=== PATIENT | female | born 1935 | race Caucasian/White ===

== ENCOUNTER 2021-10-24 22:38 | Inpatient (IN) | payer MEDICARE, OTHER ==
[~2021-10-24] VITALS: Ht 165.1 cm; Wt 61.7 kg
--- NOTE | 2021-10-24 22:49 | NUR ---
Dr Smith at bedside, MSE in progress.
[2021-10-24] MEDS ORDERED: ATEN25TA PO (22:53)
[2021-10-24] MEDS ORDERED: METF-494 PO (22:53)
[2021-10-24] MEDS ORDERED: ESCI5TAB PO (22:53)
[2021-10-24] MEDS ORDERED: ONDANSETRON 4 MG/2 ML VIAL ONE (22:55)
[2021-10-24] MEDS ORDERED: ONDANSETRON 4 MG/2 ML VIAL IV ONE (23:00)
[2021-10-24] MEDS ORDERED: FENTANYL CITRATE 100 MCG/2 ML AMPUL IV ONE (23:00)
[2021-10-24] MEDS ORDERED: FENTANYL CITRATE 100 MCG/2 ML AMPUL ONE (23:13)
[2021-10-24 23:25] LABS: MEAN CORPUSCULAR HEMOGLOBIN 30.8 uug (24.7-32.8); MEAN CORPUSCULAR VOLUME 87.6 fL (75.5-95.3); PLATELET COUNT (AUTO) 173 K/uL (179-408)
[2021-10-24 23:27] LABS: CARBON DIOXIDE 28 mmol/L (21-32); CHLORIDE 100 mmol/L (98-107); CREATININE 0.7 mg/dL (0.6-1.3); GLUCOSE 196 mg/dL (74-106); POTASSIUM 3.8 mmol/L (3.5-5.1); UREA NITROGEN, BLOOD 11 mg/dL (7-18)
[2021-10-24 23:43] LABS: ALANINE AMINOTRANSFERASE 24 U/L (14-59); ALKALINE PHOSPHATASE 59 U/L (50-136); ASPARTATE AMINOTRANSFERASE 15 U/L (15-37); BILIRUBIN,DIRECT 0.1 mg/dL (0.0-0.2); BILIRUBIN,TOTAL 0.2 mg/dL (0.2-1.0); LIPASE 121 U/L (73-393); TOTAL PROTEIN, SERUM 7.1 g/dL (6.4-8.2)
[2021-10-25] MEDS ORDERED: LOSA50TA39 PO (00:24)
[2021-10-25] MEDS ORDERED: ROSU40TA PO (00:24)
[2021-10-25] MEDS ORDERED: CITA10TA9 PO (00:24)
[2021-10-25] MEDS ORDERED: CLON1TAB12 PO (00:24)
[2021-10-25] MEDS ORDERED: LEVO50TA8 PO (00:24)
[2021-10-25] MEDS ORDERED: DONE10TA44 PO (00:24)
[2021-10-25] MEDS ORDERED: METF-440 PO (00:24)
[2021-10-25] MEDS ORDERED: CYCL30DR OP (00:24)
[2021-10-25] MEDS ORDERED: METO25TA3 PO (00:24)
[2021-10-25] MEDS ORDERED: PREG75CA PO (00:24)
[2021-10-25] MEDS ORDERED: MEMA10TA PO (00:24)
--- NOTE | 2021-10-25 03:12 | NUR ---
Called [facility] for panel call.
[2021-10-25] MEDS ORDERED: CLONAZEPAM 1 MG TABLET PO PRN (03:30)
[2021-10-25] MEDS ORDERED: FENTANYL CITRATE 100 MCG/2 ML AMPUL IV ONE (05:15)
[2021-10-25] MEDS ORDERED: FENTANYL CITRATE 100 MCG/2 ML AMPUL ONE (05:18)
[2021-10-25 05:44] LABS: *BILIRUBIN,URIN NEGATIVE (NEGATIVE); *BLOOD, URINE NEGATIVE (NEGATIVE); *COLOR,URINE YELLOW (YELLOW); *KETONES,URINE NEGATIVE (NEGATIVE); *UROBILINOGEN,URINE 0.2 E.U./dl (NORMAL); LEUKOCYTE ESTERASE ,URINE 2+ (NEGATIVE); NITRITE, URINE NEGATIVE (NEGATIVE); UGLUCOSE NEGATIVE (NEGATIVE)
[2021-10-25 05:47] LABS: *CLARITY,URINE HAZY (CLEAR)
[2021-10-25] MEDS ORDERED: BLOOD SUGAR DIAGNOSTIC 1 EACH STRIP VI SCH (06:00)
[2021-10-25] MEDS ORDERED: ONDANSETRON 4 MG/2 ML VIAL ONE (06:11)
[2021-10-25] MEDS ORDERED: ONDANSETRON 4 MG/2 ML VIAL IV ONE (06:15)
[2021-10-25 06:16] LABS: BACTERIA,URINE FEW /HPF (NONE SEEN); RBC,URINE 0-3 /HPF (0-3); SQUAMOUS EPITHELIAL CELL,UR FEW /HPF (NONE SEEN)
--- NOTE | 2021-10-25 07:15 | NUR ---
Received pt awake in bed, alert and orientedx2. Patient not in any form of distress. No complaints of pain/discomfort at this time.
[2021-10-25] MEDS: LEVOTHYROXINE SODIUM 50 MCG TABLET PO SCH (07:30)
[2021-10-25] MEDS ORDERED: hydrALAZINE HCL 20 MG/1 ML VIAL IV PRN (07:45)
[2021-10-25] MEDS ORDERED: DEXTROSE 50% 50 ML DISP.SYRIN IV PRN (07:45)
[2021-10-25] MEDS: BLOOD SUGAR DIAGNOSTIC 1 EACH STRIP VI SCH ×4 (08:26→20:25)
[2021-10-25] MEDS ORDERED: LEVOTHYROXINE SODIUM 100 MCG TABLET ONE (08:34)
[2021-10-25] MEDS ORDERED: Medication Not On Formulary EA (Pregabalin (Lyrica) 75 MG) PO SCH (09:00)
[2021-10-25] MEDS ORDERED: MEMANTINE HCL 10 MG TABLET PO SCH (09:00)
[2021-10-25] MEDS ORDERED: Medication Not On Formulary EA (Rosuvastatin Calcium (Crestor) 40 MG) PO SCH (09:00)
[2021-10-25] MEDS: INSULIN REGULAR, HUMAN 300 UNIT/3 ML VIAL SQ PRN ×4 (09:02→20:26)
--- NOTE | 2021-10-25 09:17 | NUR ---
Report given to Nurse homer. Patient will be in room 309 telemetry.
--- NOTE | 2021-10-25 09:30 | NUR ---
Patient alert and orientedx2, not in distress. Patient transferred to telemetry room 309 accompanied by RN. Vitals as follows; BP-130/70 MT-60 RR-18 T-97 [id number]%RA
[2021-10-25 09:52] VITALS: BP 129/75
[2021-10-25] MEDS: MEMANTINE HCL 10 MG TABLET PO SCH ×2 (10:07→20:10)
[2021-10-25] MEDS: ASPIRIN EC 81 MG TABLET.DR PO SCH (10:07)
[2021-10-25] MEDS: CITALOPRAM 10 MG TABLET PO SCH (10:07)
[2021-10-25] MEDS: NITROFURANTOIN/NITROFURAN MAC 100 MG CAPSULE PO SCH ×2 (10:07→20:10)
[2021-10-25] MEDS: PREGABALIN 25 MG CAPSULE PO SCH (10:07)
[2021-10-25] MEDS: LOSARTAN POTASSIUM 50 MG TABLET PO SCH (10:08)
[2021-10-25] MEDS: METOPROLOL SUCCINATE XL 25 MG TAB.SR.24H PO SCH (10:08)
[2021-10-25] MEDS: POLYVINYL ALCOHOL OPHT DROPS 15 ML BOTTLE EACHEYE SCH ×2 (10:09→17:06)
[2021-10-25 10:30] VITALS: BP 129/75
[2021-10-25] MEDS ORDERED: IOHEXOL 350 100 ML INFUS..BTL ONE (10:49)
[2021-10-25] MEDS ORDERED: IV NORMAL SALINE 250 ML IV ONE (10:49)
[2021-10-25] MEDS ORDERED: SWABABLE VALVE TRANSFER SET EA MC ONE (10:49)
--- NOTE | 2021-10-25 13:00 | NUR ---
Pt alert and oriented x 4 Pt denies any c/o pain. used pbx installer phone [phone] for admission and consents for cta brain and carotid and mri checklist. Noted redness striations on right foot. Pt states that she has had that since and its normal for her. Skin intact otherwise. IV patent on left f/a #20 gauge flushing well without any resistance . Pt evaluated by Physical therapy min A. Pt c/o shaking on her right lower leg with the juvenile detention officer but denies pain. Pt SNR on tele with pac's and pvcs. Bed alarm on. Pt swallowing without difficulty and no coughing noted. No drift noted no weakness on UE's and LE's no facial droop noted. Call light is within reach.
[2021-10-25] MEDS: DONEPEZIL 10 MG TABLET PO SCH (15:29)
[2021-10-25 15:32] VITALS: BP 146/89
[2021-10-25] MEDS: LACTULOSE 20 G/30 ML LIQUID UDC PO PRN (17:45)
--- NOTE | 2021-10-25 17:47 | NUR ---
Notified DR Sanches pt is constipated no bm x 3-4 days lactulose ordered and given. and notified mri ordered today will be done in am per rhonda sterile processing technician.
--- NOTE | 2021-10-25 19:44 | NUR ---
Patient complaining of nausea. Informed Dr. Bryant and obtain order for Zofran 4mg IV every 4 hours PRN for N/V. Order noted and will carry out.
[2021-10-25] MEDS ORDERED: ONDANSETRON 4 MG/2 ML VIAL IV PRN (19:45)
[2021-10-25 20:00] VITALS: BP 143/74
--- NOTE | 2021-10-25 20:56 | NUR ---
Patient complaining of right side abdominal pain, also had x1 vomiting gastric content. Informed Dr. Bryant and ordered Morphine 2MG IV every 4 hours PRN for pain. Order noted and will carry out.
[2021-10-25] MEDS ORDERED: ATORVASTATIN 40 MG TABLET PO SCH (21:00)
[2021-10-25] MEDS ORDERED: MORPHINE SULFATE 2 MG/1 ML DISP.SYRIN IV PRN (21:00)
[2021-10-26 00:17] VITALS: BP 105/52
[2021-10-26 04:33] VITALS: BP 122/62
[2021-10-26] MEDS: LEVOTHYROXINE SODIUM 50 MCG TABLET PO SCH (06:08)
--- NOTE | 2021-10-26 06:27 | NUR ---
Patient slept off and on through out the night. Stated this is her usual pattern of sleep. No further complain of abd. pain. No further nausea or vomiting. Needs attended to and met. Safety measure maintained and call light within reached.
--- NOTE | 2021-10-26 06:33 | NUR ---
NSR with frequent PAC's on tele with HR of 63/min.
[2021-10-26] MEDS: BLOOD SUGAR DIAGNOSTIC 1 EACH STRIP VI SCH ×3 (06:35→16:38)
[2021-10-26] MEDS: LACTULOSE 20 G/30 ML LIQUID UDC PO PRN (06:39)
[2021-10-26 07:12] LABS: HEMATOCRIT 37.6 % (31.2-41.9); MEAN CORPUSCULAR HEMOGLOBIN 30.3 uug (24.7-32.8); MEAN CORPUSCULAR VOLUME 87.1 fL (75.5-95.3); PLATELET COUNT (AUTO) 184 K/uL (179-408)
[2021-10-26 07:27] LABS: CREATININE 0.7 mg/dL (0.6-1.3); POTASSIUM 4.1 mmol/L (3.5-5.1)
--- NOTE | 2021-10-26 07:50 | NUR ---
PER THE GRANULATING BLENDER PATIENT WILL BE PICKED UP BY THE AMBULANCE AT 0815 PATIENT AWARE SHE IS ALERT AND ORIENTED DENIES DISCOMFORTS BREAKFAST SERVED ON ROOM AIR WITH NO SOB NOT IN DISTRESS AT THIS TIME.
[2021-10-26] MEDS ORDERED: ASPI-618 PO (08:02)
[2021-10-26] MEDS ORDERED: NITR100C11 PO (08:02)
[2021-10-26] MEDS: PREGABALIN 25 MG CAPSULE PO SCH (08:46)
[2021-10-26] MEDS: DONEPEZIL 10 MG TABLET PO SCH (08:46)
[2021-10-26] MEDS: NITROFURANTOIN/NITROFURAN MAC 100 MG CAPSULE PO SCH (08:46)
[2021-10-26] MEDS: CITALOPRAM 10 MG TABLET PO SCH (08:46)
[2021-10-26] MEDS: ASPIRIN EC 81 MG TABLET.DR PO SCH (08:46)
[2021-10-26] MEDS: METOPROLOL SUCCINATE XL 25 MG TAB.SR.24H PO SCH (08:47)
[2021-10-26] MEDS: LOSARTAN POTASSIUM 50 MG TABLET PO SCH (08:47)
[2021-10-26] MEDS: MEMANTINE HCL 10 MG TABLET PO SCH (08:50)
[2021-10-26] MEDS: POLYVINYL ALCOHOL OPHT DROPS 15 ML BOTTLE EACHEYE SCH ×2 (08:52→16:39)
--- NOTE | 2021-10-26 08:55 | NUR ---
PATIENT PICKED UP BY [facility] TO [facility] ORDERED.
--- NOTE | 2021-10-26 10:20 | NUR ---
PATIENT RETURNED FROM [facility] AFTER MRI BRAIN COMPLETED ORDERED IN SATISFACTORY CONDITION.
[2021-10-26 11:15] VITALS: BP 140/72
[2021-10-26] MEDS: INSULIN REGULAR, HUMAN 300 UNIT/3 ML VIAL SQ PRN (11:49)
--- NOTE | 2021-10-26 13:00 | NUR ---
RESULT OF THE MRI BRAIN RELAYED TO DR ROMAN AND HE STATED OKAY FOR PATIENT TO BE DISCHARGED AND STATED THAT HE ALREADY SENT THE MACROBID TO PATIENTS OWN PHARMACY.WILL CALL PATIENTS FAMILY TO PICK HER UP.
--- NOTE | 2021-10-26 15:00 | NUR ---
CALLED PATIENTS DAUGHTER AVELINO TO INFORM HER THAT THE PATIENT IS DISCHARGED AND TO FIND OUT WHEN SHE CAN PICK HER UP SHE DID NOT CAMPUS COORDINATOR LEFT MESSAGE ON HER VOICE MAIL.
[2021-10-26 16:03] VITALS: BP 143/66
--- NOTE | 2021-10-26 16:46 | NUR ---
PATIENTS DAUGHTER AVELINO HERE AND PATIENT DISCHARGED WITH ALL HER PERSONAL BELONGINGS IN SATISFACTORY STABLE CONDITION AVELINO INSTRUCTED TO RECORD CHANGER PATIENTS MEDICATIONS THAT WAS SENT ELECTRONICALLY.SHE WAS ALSO INSTRUCTED ON HOME HEALTH INFORMATION AND SHE EXPRESSED UNDERSTANDING.
== END 2021-10-26 16:46 | disposition home health service (06) | DRG 69 ==
LOC: ER 22:40 → CCU 23:11 → UNDOADMIN 23:11 → TELE3 10-25 09:17
PROVIDERS: ADMIT Internal Medicine; ATTEND Internal Medicine
DX: G45.9 Transient cerebral ischemic attack, unspecified (principal); N39.0 Urinary tract infection, site not specified; G81.91 Hemiplegia, unspecified affecting right dominant side; E03.9 Hypothyroidism, unspecified; Z79.890 Hormone replacement therapy; E11.9 Type 2 diabetes mellitus without complications; F41.9 Anxiety disorder, unspecified; I49.1 Atrial premature depolarization; Z79.84 Long term (current) use of oral hypoglycemic drugs; Z20.822 Contact with and (suspected) exposure to COVID-19; R29.700 NIHSS score 0
CPT/HCPCS: 36415; 70450; 70496; 70551; 71045; 83605; 83690; 84484; 85025; 85730; 87040; 87086; 93005; 93307; 97161; A4663; G0378; J1815; J2270; J2405; J3010; Q9967